=== PATIENT | male | born 1965 | race Caucasian/White ===

== ENCOUNTER 2017-04-08 11:57 | Observation (INO) | payer BC, OTHER ==
[2017-04-08 12:36] LABS: #Basophils 0.1 thou/uL (0.0-0.2); #Eosinphils 0.1 thou/uL (0.0-0.7); #Lymphocytes 1.7 thou/uL (1.20-3.40); #Monocytes 0.6 thou/uL (0.11-0.59); #Neutrophils 4.6 thou/uL (1.40-6.50); %Basophils 0.8 % (0.0-1.0); %Eosinophils 1.2 % (0.0-10.0); %Lymphocytes 24.4 % (21.0-51.0); %Monocytes 7.9 % (0.0-10.0); %Neutrophils 65.7 % (42.0-75.0); Hemoglobin 16.8 g/dL (14.0-18.0); Mean Corpuscular Hemoglobin 32.2 pg (27.0-31.0); Mean Corpuscular Volume 97.7 fl (80.0-94.0); Mean Platelet Volume 6.8 fL (7.4-10.4); Platelet Count 327 thou/uL (130-400); RBC Distribution Width 11.4 % (11.5-14.5)
--- NOTE | 2017-04-08 12:46 | RAD ---
PORTABLE CHEST ONE VIEW: 04/08/2017 11:51 a.m. HISTORY: Chest pain. COMPARISON: 12/10/2010 FINDINGS: The heart size is normal. The lungs are well expanded without focal areas of consolidation, pneumoth orax, or pleural effusions. There are postop changes of right rotator cuff repair. IMPRESSION: No radiographic evidence of acute cardiopulmonary process. POS: [facility]
[2017-04-08 12:53] LABS: ALT (SGPT) 34 U/L (8-55); AST (SGOT) 20 U/L (5-34); Albumin 4.5 g/dL (3.5-5.0); Alkaline Phosphatase 55 U/L (40-150); Anion Gap 11 mmol/L (10-20); BUN (Urea Nitrogen) 13 mg/dL (8.9-20.6); Bilirubin, Total 0.6 mg/dL (0.2-1.2); CK (CPK) 75 U/L (30-200); Calc. Creatinine Clearance 0 mL/min (70-130); Calcium 9.6 mg/dL (7.8-10.44); Carbon Dioxide 28 mmol/L (22-29); Chloride 104 mmol/L (98-107); Estimated GFR-MDRD 82; Globulin 3.2 g/dL (2.4-3.5); Glucose 112 mg/dL (70-105); Lipase 36 U/L (8-78); Potassium 4.3 mmol/L (3.5-5.1); Protein, Total 7.7 g/dL (6.0-8.3); Sodium 139 mmol/L (136-145)
[2017-04-08 12:55] LABS: CKMB 0.5 ng/mL (0-6.6); Troponin I Less than 0.010 ng/mL (< 0.028)
[2017-04-08] MEDS ORDERED: Nitroglycerin 0.4 MG TAB (25 Tab Bottle) ONE (15:25)
[2017-04-08] MEDS ORDERED: Ondansetron HCl/PF 4 MG/2 ML Vial IVP PRN (17:35)
[2017-04-08] MEDS ORDERED: Acetaminophen 325 MG TAB PO PRN (17:35)
[2017-04-08] MEDS ORDERED: Ondansetron ODT 4 MG TAB SL PRN (17:35)
[2017-04-08 17:42] VITALS: BMI 37.0
[2017-04-08 18:48] LABS: Troponin I Less than 0.010 ng/mL (< 0.028)
[2017-04-08] MEDS ORDERED: Mag-Al 1200 mg/1200 mg/30 ML UDCUP PO PRN (18:53)
[2017-04-08] MEDS ORDERED: Famotidine 20 MG TAB PO SCH (21:00)
[2017-04-09 05:08] LABS: Cardiac Risk 3.4 (Less than 4.5)
--- NOTE | 2017-04-09 08:24 | HP ---
REASON FOR ADMISSION/CHIEF COMPLAINT: Chest pain. HISTORY OF PRESENT ILLNESS: History is that of a 51-year-old gentleman who presented here with chest pain associated with some occasional palpitations, diaphoresis, lightheadedness, with radiation up t o the neck. The patient described the pain as burning . Denies any at this time. The santos shea presented to the ED where initial cardiac enzymes were pretty much unremarkable. However, the patient responded well to nitroglycerin. Given the response to nitroglycerin and the on and off ches t pain, the decision was taken to admit this patient to rule out any potential acute coronary syndrom e. Patient denies similar symptoms in the past. PAST MEDICAL HISTORY: Hypothyroidism, sinusitis, and occasional tobacco abuse. MEDICATIONS: Levothyroxine, . FAMILY HISTORY: No significant family history of cardiac disease. SOCIAL HISTORY: The patient occasionally smokes cigarettes. Denies alcohol or drug use. REVIEW OF SYSTEMS: As documented in the body of the history. The other systems were reviewed and __ ___. LABORATORY INVESTIGATION: Showed initial cardiac enzymes to be unremarkable. CBC is normal. Chemis try unremarkable. PHYSICAL EXAMINATION: GENERAL: The patient was not found to be in any acute distress. VITAL SIGNS: Afebrile with temperature 97.9, pulse 72, respiratory rate 18, O2 sat 94%, blood pressu re . HEENT: Unremarkable. Moist oral mucosa. Neck is supple. No conjunctival injection or icterus. CARDIOVASCULAR SYSTEM: Heart sounds were heard. RESPIRATORY SYSTEM: Clear to auscultation. DIGESTIVE SYSTEM: Revealed a benign abdomen with positive bowel sounds. EXTREMITIES: No peripheral edema. SKIN: No new gross rash. LYMPHATICS: No peripheral lymphadenopathy. IMPRESSION: 1. Chest pain, query cause, this could be reflux, however, cannot completely rule out acute coronary syndrome. 2. History of tobacco usage. 3. Hypothyroidism. PLAN: 1. Complete serial cardiac enzymes. 2. Cardiology consultation as well as possible stress test. 3. We will start this patient on reflux medication. Further management to be dependent on the clinical course.
[2017-04-09] MEDS ORDERED: Loratadine/Pseudoephedrine 10/240 mg Tablet PO PRN (09:00)
[2017-04-09] MEDS ORDERED: Levothyroxine Sodium 88 MCG TAB PO SCH (09:00)
[2017-04-09] MEDS ORDERED: Pantoprazole 40 MG GRANULES PACKET PO SCH (09:00)
[2017-04-09] MEDS ORDERED: Enoxaparin Sodium 40 MG/0.4 ML SYRINGE SC SCH (09:00)
[2017-04-09] MEDS ORDERED: Aspirin 325 MG TAB PO SCH (09:00)
[2017-04-09 11:43] VITALS: BP 129/79; TEMP 98
--- NOTE | 2017-04-09 12:32 | NM ---
CARDIAC SPECT WITH EJECTION FRACTION AND WALL MOTION: DATE: 04/09/17 HISTORY: 51-year-old male with chest pain. TECHNIQUE/FINDINGS: Sestamibi study using Saji protocol. Patient was injected with 30 mCi technetium-99m sestamibi intravenously for stress images and patient was injected with 10.2 mCi of technetium-99m sestamibi intravenously for resting images. Multiple SPECT images in the short axis, vertical long axis, and horizontal long axis demonstrate no scan evidence for infarct or ischemia. TID: 1.04 LHR: 0.38 EDV: 117 mL EF: 55% MYOCARDIAL PERFUSION WALL MOTION: No abnormal wall motion. IMPRESSION: Unremarkable cardiac SPECT with ejection fraction and wall motion. POS: [facility]
--- NOTE | 2017-04-09 13:22 | CON ---
DATE OF CONSULTATION: 04/09/2017 REASON FOR CONSULTATION: Chest pain and presyncope. HISTORY OF PRESENT ILLNESS: Mr. Ruiz is a pleasant 51-year-old gentleman who has not been seen or evaluated by Cardiology in the past. He recently states he was in grocery store when he had a presyn copal episode, this passed. Then, he had a burning type discomfort lasting for 4 hours. No nausea, vomiting or other associated symptoms present. He proceeded to the emergency room where symptoms imp roved. He is currently pain free. His stress study performed today was felt to be within normal [place] its. PAST MEDICAL HISTORY: None. PAST SURGICAL HISTORY: Rotator cuff. ALLERGIES: None. HOME MEDICATIONS: Include naproxen, levothyroxine, and Zyrtec. REVIEW OF SYSTEMS: Ten-point review of systems is reviewed and as above, otherwise negative. PHYSICAL EXAMINATION: GENERAL: Patient is a pleasant male who is in no acute distress. The patient appears his stated age . VITAL SIGNS: Blood pressure 129/79, pulse 80, temperature 98. NEUROLOGIC: The patient is alert and oriented times 3 with no focal neurologic deficits. HEENT: Sclerae without icterus. Mouth has moist mucous membranes with normal pallor. NECK: No JVD. Carotid upstroke brisk. No bruits bilaterally. LUNGS: Clear to auscultation with unlabored respirations. BACK: No scoliosis or kyphosis. CARDIAC: Regular rate and rhythm with normal S1 and S2. No S3 or S4 noted. No significant rubs, mu rmurs, thrills, or gallops noted throughout the precordium. PMI is not displaced. There is no roni ternal heave. ABDOMEN: Soft, nontender, nondistended. No peritoneal signs present. No hepatosplenomegaly. No ab normal striae. EXTREMITIES: 2+ femoral and 2+ dorsalis pedis pulses. No cyanosis, clubbing, or edema. SKIN: No gross abnormalities. PERTINENT LABORATORY DATA: CK and troponin negative. EKG normal sinus rhythm, normal EKG. IMPRESSION: 1. Presyncope. 2. Chest pressure. RECOMMENDATIONS: Recent stress study was felt to be negative for ischemia. At this point, I recomme nd conservative therapy. May consider a 3-week outpatient event recorder. Plan is to follow up with Mr. Ruiz as an outpatient in the office in the next 1-2 weeks. We would also recommend PPI as an outpatient. Otherwise, I have no further recommendations.
--- NOTE | 2017-04-12 11:42 | DIS ---
For details of the history and physical and the consultative notes, please refer to dictations on rec ord. SUMMARY: A 51-year-old gentleman who presented with chest pain, did undergo serial cardiac enzyme ev aluation as well as stress test which did not show any evidence of ischemia. Patient was seen [facility] by Cardiology and having been cleared by Cardiology. Patient was due for discharge. The patient was discharged on the following medications: Cetirizine 5 mg q.12 hours p.r.n., levothyr oxine 88 mcg p.o. daily, and Protonix 40 mg p.o. daily. DISCHARGE INSTRUCTIONS: Follow up with the primary care physician.
--- NOTE | 2017-04-23 21:50 | EKG ---
Test Reason : Blood Pressure : / mmHG Vent. Rate : 073 BPM Atrial Rate : 073 BPM P-R Int : 116 ms QRS Dur : 084 ms QT Int : 380 ms P-R-T Axes : 007 041 008 degrees QTc Int : 418 ms Normal sinus rhythm Normal ECG Confirmed by GARLAND DIAZ ([id number]), visual effects editor MARIA ESTHER GAR ([id number]) on 04/23/2017 9:49:57 PM Referred By: EMILY Confirmed By:GARLAND DIAZ
--- NOTE | 2017-04-29 14:26 | EKG ---
Test Reason : Blood Pressure : / mmHG Vent. Rate : 080 BPM Atrial Rate : 080 BPM P-R Int : 134 ms QRS Dur : 090 ms QT Int : 356 ms P-R-T Axes : 000 050 017 degrees QTc Int : 410 ms Normal sinus rhythm Normal ECG Confirmed by GARLAND DIAZ ([id number]), content editor MARIA ESTHER GAR ([id number]) on 04/29/2017 2:25:44 PM Referred By: Confirmed By:GARLAND DIAZ
--- NOTE | 2017-07-08 21:07 | STRESS ---
Acquisition Time: 2017-04-09 09:27:16 Total Exercise Time: 00:09:00 Test Indications: CHEST PAIN Medications: Protocol: VALENTIN Max HR: 155 BPM 91% of Pred: 170 BPM Max BP: 188/092 mmHG Max Work Load: 10.4 METS RESTING ECG: NORMAL SINUS RHYTHM AT 68 BPM SYMPTOMS: NONE NORMAL BP RESPONSE ECTOPY: NONE ECG STRESS: NO SIGNIFICANT CHANGES INTERPRETATION: NEGATIVE GXT/AWAIT NUCLEAR IMAGES FOR DEFINITIVE DIAGNOSIS Confirmed by KARSTEN MENSAH MD ([id number]) on 07/08/2017 9:06:44 PM Referred By: MD Danuta CHRISTY Confirmed By:KARSTEN MENSAH MD
== END 2017-04-09 13:32 | disposition home or self-care (01) ==
LOC: ERS 11:57 → 2SW 17:34
PROVIDERS: ADMIT Internal Medicine Nephrology; ATTEND Internal Medicine Nephrology
DX: R07.89 Other chest pain (principal); E03.9 Hypothyroidism, unspecified; J32.9 Chronic sinusitis, unspecified; F17.210 Nicotine dependence, cigarettes, uncomplicated; Z91.038 Other insect allergy status; Z79.899 Other long term (current) drug therapy; Z98.890 Other specified postprocedural states
CPT/HCPCS: 36415; 71045; 78452; 80053; 80061; 82553; 83690; 84484; 85025; 85379; 93005; 93017; 94760; 96372; A9500; G0378; J1650

== ENCOUNTER 2022-01-01 08:44 | Outpatient (CLI) | payer BC ==
[2022-01-01 10:17] LABS: #Eosinphils 0.1 10x3/uL (0.0-0.5); #Monocytes 0.5 10x3/uL (0.0-1.1); #Neutrophils 3.9 10x3/uL (1.5-8.4); %Basophils 0.5 % (0.0-2.0); %Eosinophils 1.4 % (0.0-6.0); %Lymphocytes 19.3 % (18.0-47.0); %Monocytes 8.8 % (0.0-10.0); %Neutrophils 69.6 % (40.0-75.0); Hemoglobin 16.7 g/dL (13.5-17.5); Mean Corpuscular HGB CONC 35.3 g/dL (32.0-36.0); Mean Corpuscular Hemoglobin 32.3 pg (27.0-33.0); Mean Corpuscular Volume 91.5 fl (81.2-95.1); Mean Platelet Volume 9.7 fl (7.4-10.4); Platelet Count 313 10x3/uL (150-450); RBC Distribution Width 11.9 % (11.5-14.5); Red Blood Cell (RBC) Count 5.17 10x6/uL (4.32-5.72); White Blood Cell (WBC) Count 5.7 10x3/uL (3.5-10.5)
[2022-01-01 10:47] LABS: Anion Gap 15 mmol/L (10-20); BUN (Urea Nitrogen) 17 mg/dL (8.4-25.7); Calc. Creatinine Clearance 0 mL/min (70-130); Calcium 9.6 mg/dL (7.8-10.44); Carbon Dioxide 23 mmol/L (22-29); Chloride 105 mmol/L (98-107); Estimated GFR 92; Glucose 117 mg/dL (70-105); Potassium 4.6 mmol/L (3.5-5.1); Sodium 138 mmol/L (136-145)
== END 2022-01-01 08:45 | disposition home or self-care (01) ==
LOC: LABBT 08:44
PROVIDERS: ATTEND Orthopaedic Surgery
DX: Z01.818 Encounter for other preprocedural examination (principal); M75.112 Incomplete rotator cuff tear or rupture of left shoulder, not specified as traumatic; Z20.822 Contact with and (suspected) exposure to COVID-19
CPT/HCPCS: 71046; 80048; 85025; 87811; 93005; 93010

== ENCOUNTER 2022-01-06 06:02 | Day surgery (SDC) | payer BC ==
[2022-01-05 13:30] VITALS: BMI 20.9
[2022-01-06] MEDS ORDERED: fentaNYL Citrate/PF 100 MCG/2 ML SYRINGE ONE (06:06)
[2022-01-06] MEDS ORDERED: Midazolam HCl 2 mg/2 ml Vial ONE ×2 (06:06→06:36)
[2022-01-06] MEDS ORDERED: Fentanyl 100 MCG/2 ML VIAL ONE (06:36)
[2022-01-06] MEDS ORDERED: Ropivacaine 0.5% HCl/PF (150 MG/30 ML VIAL) ONE (06:36)
[2022-01-06] MEDS ORDERED: PROPOFOL 200 MG/20 ML VIAL ONE (07:15)
[2022-01-06] MEDS ORDERED: PHENYLEPHRINE-NS 100 MCG/ML 10 ML SYRINGE ONE (07:15)
[2022-01-06] MEDS ORDERED: Rocuronium Bromide 10 MG/ML (10ML VIAL) ONE (07:15)
[2022-01-06] MEDS ORDERED: Glycopyrrolate 0.2 MG/ML 5 ML SYRINGE ONE (07:15)
[2022-01-06] MEDS ORDERED: Ondansetron PF 4 MG/2 ML Vial ONE (07:15)
[2022-01-06] MEDS ORDERED: Ketorolac Tromethamine 30 MG/ML VIAL ONE (07:15)
[2022-01-06] MEDS ORDERED: Dexamethasone 20 MG/5 ML VIAL ONE (07:15)
[2022-01-06] MEDS ORDERED: CEFAZOLIN 2 GM VIAL ONE (07:23)
[2022-01-06] MEDS ORDERED: Sodium Chloride 0.9% 100 ML ONE (07:23)
[2022-01-06] MEDS ORDERED: Ondansetron PF 4 MG/2 ML Vial IVP PRN (08:15)
[2022-01-06] MEDS ORDERED: traMADol HCl 50 MG TAB PO PRN ×2 (08:15)
[2022-01-06] MEDS ORDERED: Ketorolac Tromethamine 30 MG/ML VIAL IVP PRN (08:15)
[2022-01-06] MEDS ORDERED: HYDROcodone/Acetaminophen 5/325 mg Tablet PO PRN ×2 (08:15)
[2022-01-06] MEDS ORDERED: Promethazine HCl 25 MG/ML VIAL IM PRN (08:15)
[2022-01-06] MEDS ORDERED: Zolpidem Tartrate 5 MG TAB PO PRN (08:15)
[2022-01-06] MEDS ORDERED: Ropivacaine 0.2% 550 ML 550 ML NERVE BLCK SCH (08:15)
[2022-01-06] MEDS ORDERED: EPINEPHrine 1 MG/ML AMP ONE (08:22)
[2022-01-06] MEDS ORDERED: Bupivacaine 0.25% HCL 30 ML VIAL ONE (08:22)
== END 2022-01-06 11:10 | disposition home or self-care (01) ==
LOC: SDC 06:02
PROVIDERS: ATTEND Orthopaedic Surgery
PROC: 0LM24ZZ Reattachment of Left Shoulder Tendon, Percutaneous Endoscopic Approach (ICD-10-PCS; principal; 2022-01-06)
PROC: 0RNK4ZZ Release Left Shoulder Joint, Percutaneous Endoscopic Approach (ICD-10-PCS; principal; 2022-01-06)
DX: M75.122 Complete rotator cuff tear or rupture of left shoulder, not specified as traumatic (principal); M25.812 Other specified joint disorders, left shoulder; S46.212A Strain of muscle, fascia and tendon of other parts of biceps, left arm, initial encounter; E03.9 Hypothyroidism, unspecified; K21.9 Gastro-esophageal reflux disease without esophagitis; F17.210 Nicotine dependence, cigarettes, uncomplicated; Z79.890 Hormone replacement therapy; Z79.899 Other long term (current) drug therapy; Z91.038 Other insect allergy status
CPT/HCPCS: A4306; C1713; J0171; J0690; J1100; J1885; J2250; J2405; J2704; J2795; J3010; J3490; S0020